=== PATIENT | female | born 1960 | race Caucasian/White ===

== ENCOUNTER 2021-03-15 12:16 | Inpatient (IN) ==
[2021-03-15] MEDS ORDERED: Morphine 4 MG/ML VIAL (1 ml) IV ONE (15:16)
[2021-03-15] MEDS ORDERED: LORazepam 2 mg VIAL 1 ml IV PUSH ONE (15:54)
[2021-03-15] MEDS ORDERED: Lorazepam PYXIS KEY PRN (15:54)
[2021-03-15] MEDS ORDERED: VERAPAMIL 2.5 MG/ML 2 ML VIAL ** 5 mg/2 ml IV PUSH ONE (15:56)
[2021-03-15 16:48] LABS: ABS Lymphocytes 0.3 10^3/ul (1.0-4.8); ABS Monocytes 0.6 10^3/ul (0-0.8); ABS Neutrophils 18.5 10^3/ul (1.5-7.7); Hematocrit 30 % (35-47); Hemoglobin 10.4 g/dL (12.0-16.0); Lymphocyte % 1.6 %; Mean Corpuscular HGB Conc 34 g/dL (31-36); Mean Corpuscular Hemoglobin 35 pg (27-31); Mean Corpuscular Volume 102 fL (80-97); Mean Platelet Volume 8.1 fL (7.4-10.4); Nucleated Red Blood Cells % 0.1; Platelet Count 276 10^3/uL (150-450); Red Blood Count 2.97 10^6 /uL (3.70-4.87); Red Cell Distribution Width 15 % (10-15); White Blood Count 19.4 10^3/uL (3.5-10.8)
[2021-03-15] MEDS: NS 0.9% 1000 ml BAG 2,000 ML IV ONE ×2 (16:50→17:13)
[2021-03-15 16:52] LABS: Rapid COVID-19 Molecular Detected (Undetected)
[2021-03-15 16:56] LABS: Activated Partial Thrombo Time 28.1 seconds (26.0-38.0); INR 1.05 (0.86-1.15)
[2021-03-15 17:06] LABS: ALT 26 U/L (7-52); AST 22 U/L (13-39); Albumin 3.7 g/dL (3.2-5.2); Albumin/Globulin Ratio 1.4 (1-3); Alkaline Phosphatase 65 U/L (35-149); Blood Urea Nitrogen 14 mg/dL (6-24); C Reactive Protein 71.55 mg/L (<8.01); Calcium 9.6 mg/dL (8.6-10.3); Chloride 83 mmol/L (101-111); Globulin 2.6 g/dL (2-4); Glucose 134 mg/dL (70-100); Magnesium 1.5 mg/dL (1.9-2.7); Sodium 141 mmol/L (135-145); Total Protein 6.3 g/dL (6.4-8.9)
[2021-03-15 17:25] LABS: CO2 Carbon Dioxide 48 mmol/L (22-32); Potassium 2.2 mmol/L (3.5-5.0)
[2021-03-15 17:26] LABS: Troponin I 0.11 ng/mL (<0.03)
[2021-03-15] MEDS ORDERED: Potassium EFFERVES 25 meq TAB PO ONE (17:34)
[2021-03-15] MEDS: KCL 20 MEQ/100 ML IVPREMIX 20 MEQ/100 ML BAG IV SCH ×3 (18:03→22:40)
[2021-03-15] MEDS: Morphine 4 MG/ML VIAL (1 ml) IV PRN ×2 (20:28→23:32)
[2021-03-15 21:32] LABS: Venous Bicarbonate HCO3 48.5 mmol/L (24-28)
[2021-03-15 22:03] LABS: Troponin I 0.11 ng/mL (<0.03)
[2021-03-15] MEDS ORDERED: cefTRIAXone 1 gm/50 mL NS BAG 1 GM/50 ML BAG IVPB SCH (22:10)
[2021-03-15] MEDS ORDERED: Magnesium Sulfate 2 gm BAG 2 GM/50 ML BAG IVPB ONE (22:17)
[2021-03-15] MEDS ORDERED: Remdesivir 100 mg Vial 200 MG in NS 0.9% 250 ml 210 ML IV ONE (22:30)
[2021-03-15] MEDS: Enoxaparin 40 MG/0.4 ML SYR SUBCUT SCH (23:30)
[2021-03-16] MEDS: Azithromycin 500 mg/250 ml NS 500 MG/250 ML BAG IVPB SCH ×2 (01:57→02:20)
[2021-03-16 05:51] LABS: Albumin 3.4 g/dL (3.2-5.2); Albumin/Globulin Ratio 1.4 (1-3); Calcium 8.9 mg/dL (8.6-10.3); Globulin 2.5 g/dL (2-4); Magnesium 1.9 mg/dL (1.9-2.7); Total Bilirubin 0.4 mg/dL (0.2-1.0); Total Protein 5.9 g/dL (6.4-8.9)
[2021-03-16 05:52] LABS: INR 1.08 (0.86-1.15)
[2021-03-16 05:58] LABS: Potassium 2.3 mmol/L (3.5-5.0)
[2021-03-16] MEDS: Morphine 2 MG/ML SYRINGE IV PRN ×2 (06:48→10:49)
[2021-03-16 07:32] LABS: TSH Ultra Thyroid Stim Horm 0.03 mcIU/mL (0.34-5.60)
[2021-03-16] MEDS: KCL 20 MEQ/100 ML IVPREMIX 20 MEQ/100 ML BAG IV SCH ×2 (08:08→10:41)
[2021-03-16] MEDS ORDERED: Lisinopril/HCTZ 20/12.5 TB(NF) PO SCH (09:00)
[2021-03-16 10:23] LABS: Hematocrit 30 % (35-47); Hemoglobin 9.8 g/dL (12.0-16.0); Mean Corpuscular HGB Conc 33 g/dL (31-36); Mean Corpuscular Hemoglobin 35 pg (27-31); Mean Corpuscular Volume 104 fL (80-97); Mean Platelet Volume 8.9 fL (7.4-10.4); Platelet Count 256 10^3/uL (150-450); Red Blood Count 2.83 10^6 /uL (3.70-4.87); Red Cell Distribution Width 14 % (10-15); White Blood Count 19.5 10^3/uL (3.5-10.8)
[2021-03-16 10:33] LABS: Calcium 9.2 mg/dL (8.6-10.3)
[2021-03-16 10:41] LABS: ABS Lymphocytes 0.2 10^3/ul (1.0-4.8); ABS Monocytes 0.5 10^3/ul (0-0.8); ABS Neutrophils 18.8 10^3/ul (1.5-7.7); Lymphocyte % 1.1 %; Nucleated Red Blood Cells % 0.1
[2021-03-16 11:22] LABS: Potassium 2.2 mmol/L (3.5-5.0)
[2021-03-16] MEDS ORDERED: DOXYcycline 100 MG in NS 0.9% 250 ml 250 ML IVPB SCH (12:00)
[2021-03-16] MEDS: oxyCODONE SR 10 mg TAB PO SCH (13:34)
[2021-03-16] MEDS ORDERED: Metoclopramide 5 MG/ML VIAL (10 mg) IV SLOW PU PRN (14:43)
[2021-03-16] MEDS ORDERED: Acetaminophen IV 1 GM/100ML 100 ML IV ONE ×2 (14:44→14:45)
[2021-03-16 14:49] LABS: Urine Appearance Turbid; Urine Bilirubin Negative (Negative); Urine Blood 1+ (Negative); Urine Color Yellow; Urine Glucose 1+(50 mg/dL) (Negative); Urine Ketones 1+ (Negative); Urine Nitrite Negative (Negative); Urine Protein 2+(100 mg/dL) (Negative); Urine Specific Gravity 1.011 (1.002-1.030); Urine Urobilinogen Negative (Negative)
[2021-03-16 14:52] LABS: Urine Bacteria Absent (Absent); Urine Red Blood Cell 1+(3-5/hpf) (Absent); Urine Squamous Epithelial Cell Present (Absent); Urine White Blood Cell Absent (Absent); Urine Yeast Present (Absent)
[2021-03-16] MEDS ORDERED: CMCS: Baricitinib 2 MG TAB (NF) PO SCH (15:00)
[2021-03-16 16:07] LABS: Hematocrit 30 % (35-47); Hemoglobin 9.7 g/dL (12.0-16.0); Mean Corpuscular HGB Conc 33 g/dL (31-36); Mean Corpuscular Hemoglobin 34 pg (27-31); Mean Corpuscular Volume 103 fL (80-97); Mean Platelet Volume 8.1 fL (7.4-10.4); Platelet Count 248 10^3/uL (150-450); Red Blood Count 2.87 10^6 /uL (3.70-4.87); Red Cell Distribution Width 14 % (10-15); White Blood Count 20.3 10^3/uL (3.5-10.8)
[2021-03-16 16:35] LABS: ABS Basophils 0.1 10^3/ul (0-0.2); ABS Lymphocytes 0.3 10^3/ul (1.0-4.8); ABS Monocytes 0.5 10^3/ul (0-0.8); ABS Neutrophils 19.4 10^3/ul (1.5-7.7); Lymphocyte % 1.2 %; Nucleated Red Blood Cells % 0.1
[2021-03-16 16:40] LABS: Calcium 9.5 mg/dL (8.6-10.3); Magnesium 1.6 mg/dL (1.9-2.7)
[2021-03-16] MEDS ORDERED: Magnesium Sulf 4 GM/100 ML IV 4,000 MG/100 ML BAG IVPB ONE (16:54)
[2021-03-16 17:08] LABS: Potassium 2.4 mmol/L (3.5-5.0)
[2021-03-16] MEDS ORDERED: Trimethobenzamide *IM* 100 mg/ml 2 ml VIAL (200 mg) IM PRN (17:25)
[2021-03-16] MEDS ORDERED: Morphine 2 MG/ML SYRINGE IV ONE (18:05)
[2021-03-16] MEDS ORDERED: Vancomycin 1,000 MG in NS 0.9% 250 ml 250 ML IVPB ONE (18:46)
[2021-03-16] MEDS ORDERED: Vancomycin per Pharmacy 1 EA NOTE FOLLOW UP SCH (19:00)
[2021-03-16] MEDS ORDERED: Cefepime 2 GM in Dextrose 2 GM/50 ML BAG IV SCH (19:30)
[2021-03-16] MEDS ORDERED: Metoprolol Tartrate 5 mg VIAL 5 ml VIAL (1 mg/ml) IV PRN (20:42)
[2021-03-16] MEDS ORDERED: Remdesivir 100 mg Vial 100 MG in NS 0.9% 250 ml 230 ML IV SCH (21:00)
[2021-03-16] MEDS ORDERED: Lorazepam PYXIS KEY PRN (21:34)
[2021-03-16] MEDS ORDERED: Morphine 2 MG/ML SYRINGE IV PRN (21:35)
[2021-03-16] MEDS: LORazepam 2 mg VIAL 1 ml IV PUSH PRN (22:45)
[2021-03-17] MEDS ORDERED: Metoprolol Tartrate 5 mg VIAL 5 ml VIAL (1 mg/ml) IV PRN (00:07)
[2021-03-17 02:35] VITALS: BP 113/63
[2021-03-17] MEDS: LORazepam 2 mg VIAL 1 ml IV PUSH PRN ×6 (04:08→21:48)
[2021-03-17] MEDS: Enoxaparin 40 MG/0.4 ML SYR SUBCUT SCH (08:05)
[2021-03-17] MEDS: KCL 20 MEQ/100 ML IVPREMIX 20 MEQ/100 ML BAG IV SCH (08:05)
[2021-03-17] MEDS: oxyCODONE SR 10 mg TAB PO SCH (08:05)
[2021-03-17] MEDS: Morphine 2 MG/ML SYRINGE IV PRN ×6 (11:09→22:56)
[2021-03-17] MEDS ORDERED: Atropine 1% (ORAL/SL) 15 ML BTL SL PRN (21:52)
[2021-03-19] MEDS ORDERED: Scopolamine PATCH Remove NOTE PATCH OFF SCH (12:00)
== END 2021-03-17 23:14 | disposition expired | DRG 720 ==
LOC: ED 12:16 → MED 21:24 → SUATTDRO 21:24 → MED 22:35 → ICU 03-16 20:07
PROVIDERS: ADMIT Internal Medicine; ATTEND Internal Medicine